=== PATIENT | female | born 1995 | race Caucasian/White ===

== ENCOUNTER 2016-03-18 22:16 | Emergency (ER) | payer OTHER ==
[~2016-03-18] VITALS: Ht 170.2 cm; Wt 67.1 kg
[2016-03-18 22:19] VITALS: TEMP 37; Ht 170.2 cm; Wt 67.1 kg
[2016-03-18] MEDS ORDERED: BIRTH CONTROL PATCH TOP (22:43)
[2016-03-18] MEDS ORDERED: DIPH1TAB PO (22:43)
[2016-03-18] MEDS ORDERED: BUPR-79 PO (22:43)
[2016-03-18] MEDS ORDERED: ONDANSETRON 4MG OD TAB PO ONE (22:45)
--- NOTE | 2016-03-18 22:57 | DIAGNOSTIC IMAGING REPORT ---
CT OF THE HEAD WITHOUT CONTRAST CLINICAL HISTORY: Headache and vomiting following fall. COMPARISON STUDY: No previous studies for comparison. CT DOSE: 537.48 mGy.cm TECHNIQUE: Helical axial images of the head were obtained without IV contrast. Automated exposure control was utilized for the study. FINDINGS: No acute intracranial hemorrhage, midline shift or mass effect is present. Brain volume is normal. Ventricular system is normal. The basilar cisterns are patent. There are no extra-axial collections. Haas-white differentiation is maintained. There is no calvarial fracture. IMPRESSION: 1. No acute intracranial findings. 2. No calvarial fracture. Electronically signed by: Vignesh Diaz M.D. 03/18/2016 10:56 PM Dictated Date/Time: 03/18/2016 10:54 PM
--- NOTE | 2016-03-18 23:27 | EMERGENCY ROOM VISIT NOTE ---
History Report prepared by Felaibsusan: Gogo Pacheco Under the Supervision of: Dr. Wenceslao Guevara D.O. First contact with patient: 22:27 Chief Complaint: FALL Stated Complaint: FELL AT 7, CONFUSION, VOMITING, HEAD PAIN History of Present Illness The patient is a 20 year old female who presents to the Emergency Room with complaints of a sudden fall that occurred 3 hours ago. She rates her discomfort as a 7/10 in severity. The patient states that she hit her head but denies LOC. The patient was walking back to her apartment from dinner and she slipped on the ice. Her friend also fell on the ice but did not hit her head. The patient took a shower and then she developed nausea and vomiting. She is also experiencing a headache and some neck pain. The patient called the nurse hot line and they told her to come into the ED. Source of History: patient Onset: 3 hours ago Symptom Intensity: 7/10 Quality: other (fall) Timing: other (sudden) Associated Symptoms: + headache, + nausea, + neck pain, + vomiting, No LOC Review of Systems See HPI for pertinent positives & negatives. A total of 10 systems reviewed and were otherwise negative. Past Medical & Surgical Medical Problems: (1) No pertinent past medical history Family History No pertinent family history Social History Smoking Status: Never Smoker Housing Status: lives with roommate Occupation Status: [employer] Current/Historical Medications Scheduled Bupropion (Wellbutrin Sr), 150 MG PO DAILY Diphenhydramine Hcl (Benadryl Allergy), 25 MG PO HS [ Control Patch], 1 TOP UD Allergies Uncoded Allergies: UNKNOWN ANTI FUNGAL (Allergy, Mild, RASH, 03/18/16) Physical Exam Vital Signs Date Time Temp Pulse Resp B/P Pulse Ox O2 Delivery O2 Flow Rate FiO2 03/18/16 22:19 37.0 79 20 141/89 98 Room Air Physical Exam CONSTITUTIONAL/VITAL SIGNS: Reviewed / noted above. GENERAL: Non-toxic in appearance. INTEGUMENTARY: Warm, dry, and [place]. HEAD: Normocephalic. EYES: without scleral icterus or trauma. ENT/OROPHARYNX: clear and moist. LYMPHADENOPATHY/NECK: Is supple without lymphadenopathy or meningismus. RESPIRATORY: Lungs clear and equal. CARDIOVASCULAR: Regular rate and rhythm. GI/ABDOMEN: Soft and nontender. No organomegaly or pulsatile mass. No rebound or guarding. Normal bowel sounds. EXTREMITIES: Warm and well perfused. BACK: No CVA tenderness. NEUROLOGICAL: Intact without focal deficits. PSYCHIATRIC: normal affect. MUSCULOSKELETAL: Normally developed with good muscle tone. GCS: 15 Medical Decision & Procedures ER Provider Diagnostic Interpretation: CT results as stated below per my review and radiologist interpretation: CT OF THE HEAD WITHOUT CONTRAST CLINICAL HISTORY: Headache and vomiting following fall. COMPARISON STUDY: No previous studies for comparison. CT DOSE: 537.48 mGy.cm TECHNIQUE: Helical axial images of the head were obtained without IV contrast. Automated exposure control was utilized for the study. FINDINGS: No acute intracranial hemorrhage, midline shift or mass effect is present. Brain volume is normal. Ventricular system is normal. The basilar cisterns are patent. There are no extra-axial collections. Haas-white differentiation is maintained. There is no calvarial fracture. IMPRESSION: 1. No acute intracranial findings. 2. No calvarial fracture. Electronically signed by: Vignesh Diaz M.D. 03/18/2016 10:56 PM Dictated Date/Time: 03/18/2016 10:54 PM Medications Administered Medications (Trade) Dose Ordered Sig/Taylor Route Start Time Stop Time Status Last Admin Dose Admin Ondansetron HCl (Zofran Odt) 4 mg ONE ONCE PO 03/18/16 22:45 03/18/16 22:46 DC 03/18/16 22:43 4 MG ED Course 2231: Previous medical records were reviewed. The patient was evaluated in room C7. A complete history and physical examination was performed. 2245: Ordered Zofran Odt 4 mg PO 2328: On reevaluation, the patient is doing well. I discussed the results and findings with the patient. She verbalized agreement of the treatment plan. She was discharged home. 2330: Ordered Ondansetron HCl 1 homepack PO Medical Decision Differential includes close head injury, intracranial bleed, facial trauma, cervical spine trauma, chest and thoracic trauma, abdominal and intra-abdominal trauma, spine neurologic trauma, extremity trauma. This is a 20-year-old female who presents to the ED with a chief complaint nausea and vomiting after falling and hitting her head. The patient slipped on the ice and hit the back of her head. She complains of a mild headache in the right temporal region. She had nausea and vomiting a couple of hours after this occurred. She came to the ED for evaluation. She denies any other significant injuries. Her neurological exam was normal. Her physical exam did not reveal any significant hematomas to the head. There is no midline tenderness to the neck or back. She is neurologically intact. She was treated with Zofran ODT. The patient had a CT scan of the brain that was negative for acute disease. She is felt to be stable for discharge and outpatient follow- up. Zofran home pack was given. Impression Primary Impression: Fall Additional Impressions: Head contusion Mild closed head injury Scribe Attestation The scribe's documentation has been prepared under my direction and personally reviewed by me in its entirety. I confirm that the note above accurately reflects all work, treatment, procedures, and medical decision making performed by me. Departure Information Dispostion Home / Self-Care Referrals CLINTON PIERSON M.D. (PCP) Forms HOME CARE DOCUMENTATION FORM, IMPORTANT VISIT INFORMATION Patient Instructions A Signature Page, ED Head Injury Closed, [facility] Additional Instructions Zofran: Allow one tablet to dissolve under the tongue every 6 hours as needed for nausea or vomiting. Problem Qualifiers
[2016-03-18] MEDS ORDERED: ONDANSETRON HOME PACK 4MG OD TAB PO ONE (23:30)
[2016-03-18 23:34] VITALS: BP 128/65; PULSE 86; O2SAT 99
== END 2016-03-18 23:36 | disposition home or self-care (01) ==
LOC: C.EDB 22:18 → C.EDC 23:36
DX: S09.90XA Unspecified injury of head, initial encounter (principal); S00.93XA Contusion of unspecified part of head, initial encounter; W01.0XXA Fall on same level from slipping, tripping and stumbling without subsequent striking against object, initial encounter; Z79.899 Other long term (current) drug therapy